=== PATIENT | male | born 1975 | race American Indian/Alaskan Native ===

== ENCOUNTER 2017-06-16 01:51 | Emergency (ER) | payer MEDICAID, OTHER ==
[2017-06-16 02:01] VITALS: BP 100/59; PULSE 67; RESP 17; TEMP 98.2; O2SAT 97
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
== END 2017-06-16 04:55 ==
LOC: H.ER 01:51
DX: S09.90XA Unspecified injury of head, initial encounter (principal); M54.2 Cervicalgia; S29.9XXA Unspecified injury of thorax, initial encounter; Y04.0XXA Assault by unarmed brawl or fight, initial encounter; Y92.89 Other specified places as the place of occurrence of the external cause; J45.909 Unspecified asthma, uncomplicated

== ENCOUNTER 2017-10-18 12:41 | Observation (INO) | payer MEDICAID, OTHER ==
--- NOTE | 2017-10-18 13:08 | ED PDOC ---
Syncope/Near Syncope/Dizziness Time Seen by Provider: 10/18/17 12:58 Chief Complaint (Nursing): Dizziness/Lightheaded Chief Complaint (Provider): Dizziness History Per: Patient History/Exam Limitations: no limitations Onset/Duration Of Symptoms: Hrs (prior to arrival) Current Symptoms Are (Timing): Still Present Additional Complaint(s): Igor Alvarado is a 42 year old male with a past medical history of diabetes brought to the ED by [place] police for medical and psychiatric clearance prior to incarceration. The patient admits to using methamphetamine and benzodiazepine , with last use occurring yesterday. The patient reports feeling dizzy. PMD: None Provided Past Medical History Reviewed: Historical Data, Nursing Documentation, Vital Signs Vital Signs: Last Vital Signs Temp 97 F L 10/18/17 12:49 Pulse 52 L 10/18/17 12:49 Resp 16 10/18/17 12:49 BP 132/87 10/18/17 12:49 Pulse Ox 100 10/18/17 12:49 - Medical History PMH: Asthma, Diabetes Denies: Hepatitis, HIV, HTN, Seizures, Sexually Transmitted Disease - Surgical History Surgical History: Hernia Repair - Family History Family History: States: No Known Family Hx - Social History Drugs: Methamphetamine, Other (benzodiazepine) - Immunization History Hx Tetanus Toxoid Vaccination: Yes Hx Influenza Vaccination: No Hx Pneumococcal Vaccination: Yes - Home Medications Home Medications: Ambulatory Orders Medication Instructions Recorded Unobtainable 10/18/17 - Allergies Allergies/Adverse Reactions: Allergies Allergy/AdvReac Type Severity Reaction Status Date / Time acetaminophen Allergy Mild RASH Verified 10/18/17 12:48 ibuprofen [From Motrin] Allergy Mild RASH Verified 10/18/17 12:48 Review of Systems ROS Statement: Except As Marked, All Systems Reviewed And Found Negative Neurological: Positive for: Dizziness Physical Exam - Reviewed Nursing Documentation Reviewed: Yes Vital Signs Reviewed: Yes - Physical Exam Appears: Positive for: Non-toxic, No Acute Distress Head Exam: Positive for: ATRAUMATIC, NORMOCEPHALIC Skin: Positive for: Normal Color, Warm, Dry Eye Exam: Positive for: Normal appearance, EOMI ENT: Positive for: Normal ENT Inspection Neck: Positive for: Normal, Painless ROM Cardiovascular/Chest: Positive for: Regular Rate, Rhythm, Chest Non Tender Respiratory: Positive for: Normal Breath Sounds. Negative for: Respiratory Distress Gastrointestinal/Abdominal: Positive for: Normal Exam, Soft. Negative for: Tenderness Back: Positive for: Normal Inspection Extremity: Positive for: Normal ROM (full ROM). Negative for: Deformity Neurologic/Psych: Positive for: Alert, Oriented (x3). Negative for: Motor/ Sensory Deficits (or focal deficits) - Laboratory Results Result Diagrams: 10/18/17 14:04 10/18/17 14:04 - ECG O2 Sat by Pulse Oximetry: 100 (RA) Pulse Ox Interpretation: Normal Medical Decision Making Medical Decision Making: Time: 12:58 Impression: Medical and Psychiatric clearance prior to incarceration Plan: Will evaluate for medical and psychiatric clearance. Scribe Attestation: Documented by Dali Sharp, acting as a scribe for Eugenio Rinaldi MD. Provider Scribe Attestation: All medical record entries made by the Scribe were at my direction and personally dictated by me. I have reviewed the chart and agree that the record accurately reflects my personal performance of the history, physical exam, medical decision making, and the department course for this patient. I have also personally directed, reviewed, and agree with the discharge instructions and disposition. Disposition - Clinical Impression Clinical Impression: Chest pain - Patient ED Disposition Is Patient to be Admitted: Yes - Disposition Disposition Time: 13:30 Condition: FAIR - Pt Status Changed To: Hospital Disposition Of: Observation - POA Present On Arrival: None
--- NOTE | 2017-10-18 13:53 | RAD ---
HISTORY: cough COMPARISON: Comparison made with prior chest as part of a chest and rib series dated 06/16/2017. FINDINGS: LUNGS: Slightly coarsened increased interstitial markings with a few scattered peribronchial cuffing changes. Rule out sequela of reactive/inflammatory airway disease or viral illness. Probable mild right basilar atelectasis. PLEURA: No significant pleural effusion identified, no pneumothorax apparent. CARDIOVASCULAR: Normal. OSSEOUS STRUCTURES: No significant abnormalities. VISUALIZED UPPER ABDOMEN: Normal. OTHER FINDINGS: None. IMPRESSION: Slightly coarsened increased interstitial markings with a few scattered peribronchial cuffing changes. Rule out sequela of reactive/inflammatory airway disease or viral illness. Probable mild right basilar atelectasis.
[2017-10-18 14:11] LABS: BASO # 0.1 K/uL (0.0-0.2); BASO % 0.8 % (0.0-2.0); EOS # 0.1 K/uL (0.0-0.7); EOS % 0.7 % (0.0-4.0); HEMATOCRIT 40.8 % (35.0-51.0); LYMPH # 1.9 K/uL (1.0-4.3); LYMPH % 24.9 % (20.0-40.0); MEAN CELL VOLUME 85.2 fl (80.0-94.0); MEAN CORPUSCULAR HEMOGLOBIN 27.8 pg (27.0-31.0); MEAN CORPUSCULAR HGB CONC 32.6 g/dL (33.0-37.0); MEAN PLATELET VOLUME 7.1 fl (7.2-11.7); MONO # 0.6 K/uL (0.0-0.8); MONO % 7.3 % (0.0-10.0); NEUT # 5.1 K/uL (1.8-7.0); NEUT % 66.3 % (50.0-75.0); NRBC % 0.1 % (0.0-0.0); RED CELL DISTRIBUTION WIDTH 13.9 % (11.5-14.5); WHITE BLOOD COUNT 7.7 K/uL (4.8-10.8)
[2017-10-18 14:25] LABS: ALB/GLOB RATIO 1.1 (1.0-2.1); ALCOHOL SERUM < 10 mg/dl (0-10); ALKALINE PHOSPHATASE 96 U/L (38-126); ALT/SGPT 118 U/L (21-72); AST/SGOT 76 U/L (17-59); BLOOD UREA NITROGEN 10 mg/dl (9-20); CALCIUM 9.7 mg/dL (8.4-10.2); CARBON DIOXIDE 30 mmol/L (22-30); CHLORIDE 103 mmol/L (98-107); GFR AFRICAN-AMERICAN > 60; GLUCOSE,RANDOM 103 mg/dL (75-110); POTASSIUM 4.4 MMOL/L (3.6-5.0); SODIUM 142 mmol/l (132-148); TOTAL PROTEIN 8.1 G/DL (6.3-8.2)
[2017-10-18] MEDS ORDERED: DiphenhydrAMINE 50 mg/ml Inj IVP ONE (21:00)
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
--- NOTE | 2017-10-19 09:02 | CP.PCM.CON ---
History of Present Illness - History of Present Illness History of Present Illness: This 42-year-old man was brought to the emergency room by the police after he was arrested and he complained of chest discomfort. The patient has a history of drug abuse including opiates and methamphetamines. He is a smoker smokes a pack of cigarettes daily. Denies history of prior myocardial infarction. The patient also gives history of being a diabetic though he has not been taking any antibiotic diabetic medications. Denies any history of hypertension. At this point is complaining of nausea and has been retching repeatedly. Physical examination shows an -[place] male awake and conscious, able to answer simple questions readily. He seems unaware of his surroundings. He was afebrile with a pulse rate of 74 bpm and regular and a blood pressure of 124 /74 mmHg. His jugular venous pressure was not elevated and there was no edema over his lower extremities. His pedal pulses were well felt. There were no carotid bruits. There is tenderness in the left pectoral region which duplicated his symptom of chest pain. The extremities were warm and his nailbeds were pink. There was no central or peripheral cyanosis. There was no clubbing. There was no lymphadenopathy. The apex was not palpable. The first and second heart sounds were normal. There was no murmur or gallop. There were no rales. His abdomen was soft liver and spleen are not palpable. His electrocardiogram at admission showed sinus rhythm with what appeared to be baseline artifacts only 5 of these occurred at approximately 140 bpm without interfering with the basic sinus rhythm. These were seen on the admission electrocardiogram recorded at 1:07 p.m. His subsequent electrocardiogram recorded at 3:00 did not show these artifacts. Subsequently the patient has been monitored on a telemetry unit and the patient does not show atrial or ventricular arrhythmias. No ST-T abnormalities suggestive of myocardial ischemia are pathological Q waves were detected on the electrocardiogram. His lab tests were noted. There was a mild abnormality of AST and a ALT. His troponins were negative for any evidence of myocyte injury. His urine analysis was positive for opiates. Impression: Chest wall pain. No evidence of acute coronary syndrome. Chronic drug use. History of diabetes mellitus and chronic cigarette use. The patient is stable from cardiovascular point of view to be discharged and managed as an outpatient. Past Patient History - Past Medical History & Family History Past Medical History?: Yes - Past Social History Smoking Status: Smoker Currrent Status Unknown Chewing Tobacco Use: No Cigar Use: No Drugs: Cocaine, Methamphetamine - CARDIAC Hx Cardiac Disorders: Yes Hx Hypertension: Yes - PULMONARY Hx Asthma: Yes Hx Tuberculosis: No - NEUROLOGICAL HX Cerebrovascular Accident: No Hx Seizures: No - HEENT Hx Cataracts: No - ENDOCRINE/METABOLIC Hx Diabetes Mellitus Type 2: Yes - HEMATOLOGICAL/ONCOLOGICAL Hx Blood Disorders: No Hx Cancer: No Hx Human Immunodeficiency Virus (HIV): No - INTEGUMENTARY Hx Dermatological Problems: No - MUSCULOSKELETAL/RHEUMATOLOGICAL Hx Musculoskeletal Disorders: No Hx Falls: No - GASTROINTESTINAL Hx Gastrointestinal Disorders: Yes Other/Comment: Hernia repair - GENITOURINARY/GYNECOLOGICAL Hx Sexually Transmitted Disorders: No - PSYCHIATRIC Hx Depression: Yes Hx Substance Use: Yes - SURGICAL HISTORY Hx Surgeries: Yes Hx Herniorrhaphy: Yes Other/Comment: Left inguinal hernia repair surgery - ANESTHESIA Hx Anesthesia: Yes Hx Anesthesia Reactions: No Hx Malignant Hyperthermia: No Meds Allergies/Adverse Reactions: Allergies Allergy/AdvReac Type Severity Reaction Status Date / Time acetaminophen Allergy Mild RASH Verified 10/18/17 12:48 ibuprofen [From Motrin] Allergy Mild RASH Verified 10/18/17 12:48 - Medications Medications: Current Medications Acetaminophen (Tylenol 325mg Tab) 650 mg PO Q6 PRN PRN Reason: Pain, moderate (4-7) Ondansetron HCl (Zofran Inj) 4 mg IVP Q6 PRN PRN Reason: Nausea/Vomiting Last Admin: 10/19/17 05:12 Dose: 4 mg Tramadol HCl (Ultram) 50 mg PO Q6 PRN PRN Reason: Pain, severe (8-10) Last Admin: 10/18/17 19:56 Dose: 50 mg Results - Vital Signs Recent Vital Signs: Last Vital Signs Temp 98.7 F 10/19/17 08:11 Pulse 59 L 10/19/17 08:11 Resp 20 10/19/17 08:11 BP 124/81 10/19/17 08:11 Pulse Ox 100 10/19/17 08:11 - Labs Result Diagrams: 10/18/17 14:04 10/18/17 14:04 Labs: Laboratory Results - last 24 hr 10/18/17 10/18/17 10/18/17 13:01 14:04 14:04 WBC 7.7 RBC 4.79 Hgb 13.3 Hct 40.8 MCV 85.2 MCH 27.8 MCHC 32.6 L RDW 13.9 Plt Count 226 MPV 7.1 L Neut % (Auto) 66.3 Lymph % (Auto) 24.9 [place] % (Auto) 7.3 Eos % (Auto) 0.7 Baso % (Auto) 0.8 Neut # 5.1 Lymph # 1.9 [place] # 0.6 Eos # 0.1 Baso # 0.1 Sodium 142 Potassium 4.4 Chloride 103 Carbon Dioxide 30 Anion Gap 13 BUN 10 Creatinine 0.8 Est GFR ( Amer) > 60 Est GFR (Non-Af Amer) > 60 POC Glucose (mg/dL) 96 Random Glucose 103 Calcium 9.7 Total Bilirubin 1.0 AST 76 H ALT 118 H Alkaline Phosphatase 96 Troponin I < 0.0120 Total Protein 8.1 Albumin 4.3 Globulin 3.8 Albumin/Globulin Ratio 1.1 Urine Opiates Screen Urine Methadone Screen Ur Barbiturates Screen Ur Phencyclidine Scrn Ur Amphetamines Screen U Benzodiazepines Scrn U Oth Cocaine Metabols U Cannabinoids Screen Alcohol, Quantitative < 10 10/18/17 10/18/17 17:46 20:54 WBC RBC Hgb Hct MCV MCH MCHC RDW Plt Count MPV Neut % (Auto) Lymph % (Auto) [place] % (Auto) Eos % (Auto) Baso % (Auto) Neut # Lymph # [place] # Eos # Baso # Sodium Potassium Chloride Carbon Dioxide Anion Gap BUN Creatinine Est GFR ( Amer) Est GFR (Non-Af Amer) POC Glucose (mg/dL) Random Glucose Calcium Total Bilirubin AST ALT Alkaline Phosphatase Troponin I < 0.0120 Total Protein Albumin Globulin Albumin/Globulin Ratio Urine Opiates Screen Positive H Urine Methadone Screen Negative Ur Barbiturates Screen Negative Ur Phencyclidine Scrn Negative Ur Amphetamines Screen Negative U Benzodiazepines Scrn Positive U Oth Cocaine Metabols Negative U Cannabinoids Screen Negative Alcohol, Quantitative
--- NOTE | 2017-10-19 11:24 | CP.PCM.CON ---
History of Present Illness - History of Present Illness History of Present Illness: Psychiatry consult called for depression and psychiatric clearance for intoxication Chief complaint: Lightheadedness and Chest Pain HPI: This is a 42 years old male with hx of DM, Asthma and some unknown heart condition who was brought to the ED by the Police for clearance prior incarceration. Patient seems to give conflicting information to different providers. He told the keno writer/runner that he takes Methadone 85 mg PO Daily from a clinic in [place], [place], last taken 2 days ago. He also reports using 20 bags of heroin IV per day in addition to the methadone. He also states that he uses 6 (2 mg) sticks of Xanax per day, when he is able to get it. As per chart her told other providers that he uses cocaine and methamphetamine but denies this to keno writer/runner. Patient reports his mood as "fucked up" and expressed vague ideation to harm himself, but did not have any active ideation/plan/intent and was stating it to tell the keno writer/runner that he can not be discharged from the hospital. He denied psychiatric treatment or medications. Denies AH/VH/ paranoia/delusions. Patient seems to be exaggerating symptoms, including pretending that his leg was spontaneously shaking. The leg would stop shaking when he could tell the keno writer/runner was not looking at his leg. PMH: Asthma, Diabetes PSH: Hernia Repair SH: +20 bags of heroin a day IV + Methadone (as per patient), +Benzodiazepine abuse. As per record patient also reported cocaine and methamphetamine abuse. Light smoker; and Drinks Alcohol socially FH: States: No Known Family Hx Allergies: Acetaminophen, Ibuprofen MSE: A + O x 3, calm, cooperative, no acute distress, thought process- linear/ coherent, thought content- no delusions, mood "fucked up", affect- neutral, NO AH/VH/paranoia, poor I/J re: substance abuse although patient has enough insight to likely feign symptoms Impression: 42 yo male w/ polysubstance dependence, patient is likely untruthful on interview as he gives conflicting information and seems to be exaggerating symptoms to prolong his hospitalization. At this time patient does not need acute inpatient psychiatric admission. It is unclear if patient is being truthful about how much and which substances he abuses. -For opiod w/drawal can given Clonidine 0.1 mg PO Q8hr, PRN Zofran, Imodium, Flexeril if not medically contraindicated -Unclear how much benzodiazepines the patient uses, can give Ativan or Librium as per [facility] protocol if signs/symptoms of withdrawal are present -No acute inpatient psychiatric admission indicated Past Patient History - Past Medical History & Family History Past Medical History?: Yes - Past Social History Smoking Status: Smoker Currrent Status Unknown Chewing Tobacco Use: No Cigar Use: No Drugs: Cocaine, Methamphetamine - CARDIAC Hx Cardiac Disorders: Yes Hx Hypertension: Yes - PULMONARY Hx Asthma: Yes Hx Tuberculosis: No - NEUROLOGICAL HX Cerebrovascular Accident: No Hx Seizures: No - HEENT Hx Cataracts: No - ENDOCRINE/METABOLIC Hx Diabetes Mellitus Type 2: Yes - HEMATOLOGICAL/ONCOLOGICAL Hx Blood Disorders: No Hx Cancer: No Hx Human Immunodeficiency Virus (HIV): No - INTEGUMENTARY Hx Dermatological Problems: No - MUSCULOSKELETAL/RHEUMATOLOGICAL Hx Musculoskeletal Disorders: No Hx Falls: No - GASTROINTESTINAL Hx Gastrointestinal Disorders: Yes Other/Comment: Hernia repair - GENITOURINARY/GYNECOLOGICAL Hx Sexually Transmitted Disorders: No - PSYCHIATRIC Hx Depression: Yes Hx Substance Use: Yes - SURGICAL HISTORY Hx Surgeries: Yes Hx Herniorrhaphy: Yes Other/Comment: Left inguinal hernia repair surgery - ANESTHESIA Hx Anesthesia: Yes Hx Anesthesia Reactions: No Hx Malignant Hyperthermia: No Meds Allergies/Adverse Reactions: Allergies Allergy/AdvReac Type Severity Reaction Status Date / Time acetaminophen Allergy Mild RASH Verified 10/18/17 12:48 ibuprofen [From Motrin] Allergy Mild RASH Verified 10/18/17 12:48 - Medications Medications: Current Medications Ondansetron HCl (Zofran Inj) 4 mg IVP Q6 PRN PRN Reason: Nausea/Vomiting Last Admin: 10/19/17 05:12 Dose: 4 mg Tramadol HCl (Ultram) 50 mg PO Q6 PRN PRN Reason: Pain, severe (8-10) Last Admin: 10/18/17 19:56 Dose: 50 mg Results - Vital Signs Recent Vital Signs: Last Vital Signs Temp 98.7 F 10/19/17 08:11 Pulse 59 L 10/19/17 08:11 Resp 20 10/19/17 08:11 BP 124/81 10/19/17 08:11 Pulse Ox 100 10/19/17 08:11 - Labs Result Diagrams: 10/18/17 14:04 10/18/17 14:04 Labs: Laboratory Results - last 24 hr 10/18/17 10/18/17 10/18/17 13:01 14:04 14:04 WBC 7.7 RBC 4.79 Hgb 13.3 Hct 40.8 MCV 85.2 MCH 27.8 MCHC 32.6 L RDW 13.9 Plt Count 226 MPV 7.1 L Neut % (Auto) 66.3 Lymph % (Auto) 24.9 [place] % (Auto) 7.3 Eos % (Auto) 0.7 Baso % (Auto) 0.8 Neut # 5.1 Lymph # 1.9 [place] # 0.6 Eos # 0.1 Baso # 0.1 Sodium 142 Potassium 4.4 Chloride 103 Carbon Dioxide 30 Anion Gap 13 BUN 10 Creatinine 0.8 Est GFR ( Amer) > 60 Est GFR (Non-Af Amer) > 60 POC Glucose (mg/dL) 96 Random Glucose 103 Calcium 9.7 Total Bilirubin 1.0 AST 76 H ALT 118 H Alkaline Phosphatase 96 Troponin I < 0.0120 Total Protein 8.1 Albumin 4.3 Globulin 3.8 Albumin/Globulin Ratio 1.1 Urine Opiates Screen Urine Methadone Screen Ur Barbiturates Screen Ur Phencyclidine Scrn Ur Amphetamines Screen U Benzodiazepines Scrn U Oth Cocaine Metabols U Cannabinoids Screen Alcohol, Quantitative < 10 10/18/17 10/18/17 17:46 20:54 WBC RBC Hgb Hct MCV MCH MCHC RDW Plt Count MPV Neut % (Auto) Lymph % (Auto) [place] % (Auto) Eos % (Auto) Baso % (Auto) Neut # Lymph # [place] # Eos # Baso # Sodium Potassium Chloride Carbon Dioxide Anion Gap BUN Creatinine Est GFR ( Amer) Est GFR (Non-Af Amer) POC Glucose (mg/dL) Random Glucose Calcium Total Bilirubin AST ALT Alkaline Phosphatase Troponin I < 0.0120 Total Protein Albumin Globulin Albumin/Globulin Ratio Urine Opiates Screen Positive H Urine Methadone Screen Negative Ur Barbiturates Screen Negative Ur Phencyclidine Scrn Negative Ur Amphetamines Screen Negative U Benzodiazepines Scrn Positive U Oth Cocaine Metabols Negative U Cannabinoids Screen Negative Alcohol, Quantitative
[2017-10-19 15:51] VITALS: RESP 14; O2SAT 98
[2017-10-19] MEDS ORDERED: Sucralfate 1 gm/10 ml Oral Susp UD PO SCH (17:00)
--- NOTE | 2017-10-19 18:01 | CP.PCM.DIS ---
Provider - Provider Date of Admission: 10/18/17 14:34 Attending physician: Bandar Rob Consults: Psych: DR Borges Cardio : Dr Andres Vila Time Spent in preparation of Discharge (in minutes): 45 Diagnosis - Discharge Diagnosis (1) Chest pain Status: Acute (2) Polysubstance abuse Status: Acute (3) Verbalizes suicidal thoughts Status: Acute Hospital Course - Lab Results Lab Results: Most Recent Lab Values WBC 7.7 K/uL (4.8-10.8) 10/18/17 14:04 RBC 4.79 Mil/uL (4.40-5.90) 10/18/17 14:04 Hgb 13.3 g/dL (12.0-18.0) 10/18/17 14:04 Hct 40.8 % (35.0-51.0) 10/18/17 14:04 MCV 85.2 fl (80.0-94.0) 10/18/17 14:04 MCH 27.8 pg (27.0-31.0) 10/18/17 14:04 MCHC 32.6 g/dL (33.0-37.0) L 10/18/17 14:04 RDW 13.9 % (11.5-14.5) 10/18/17 14:04 Plt Count 226 K/uL (130-400) 10/18/17 14:04 MPV 7.1 fl (7.2-11.7) L 10/18/17 14:04 Neut % (Auto) 66.3 % (50.0-75.0) 10/18/17 14:04 Lymph % (Auto) 24.9 % (20.0-40.0) 10/18/17 14:04 [place] % (Auto) 7.3 % (0.0-10.0) 10/18/17 14:04 Eos % (Auto) 0.7 % (0.0-4.0) 10/18/17 14:04 Baso % (Auto) 0.8 % (0.0-2.0) 10/18/17 14:04 Neut # 5.1 K/uL (1.8-7.0) 10/18/17 14:04 Lymph # 1.9 K/uL (1.0-4.3) 10/18/17 14:04 [place] # 0.6 K/uL (0.0-0.8) 10/18/17 14:04 Eos # 0.1 K/uL (0.0-0.7) 10/18/17 14:04 Baso # 0.1 K/uL (0.0-0.2) 10/18/17 14:04 Sodium 142 mmol/l (132-148) 10/18/17 14:04 Potassium 4.4 MMOL/L (3.6-5.0) 10/18/17 14:04 Chloride 103 mmol/L (98-107) 10/18/17 14:04 Carbon Dioxide 30 mmol/L (22-30) 10/18/17 14:04 Anion Gap 13 (10-20) 10/18/17 14:04 BUN 10 mg/dl (9-20) 10/18/17 14:04 Creatinine 0.8 mg/dl (0.8-1.5) 10/18/17 14:04 Est GFR ( Amer) > 60 10/18/17 14:04 Est GFR (Non-Af Amer) > 60 10/18/17 14:04 POC Glucose (mg/dL) 96 mg/dL (65-110) 10/18/17 13:01 Random Glucose 103 mg/dL (75-110) 10/18/17 14:04 Calcium 9.7 mg/dL (8.4-10.2) 10/18/17 14:04 Total Bilirubin 1.0 mg/dl (0.2-1.3) 10/18/17 14:04 AST 76 U/L (17-59) H 10/18/17 14:04 ALT 118 U/L (21-72) H 10/18/17 14:04 Alkaline Phosphatase 96 U/L (38-126) 10/18/17 14:04 Troponin I < 0.0120 ng/mL (0.00-0.120) 10/19/17 16:00 Total Protein 8.1 G/DL (6.3-8.2) 10/18/17 14:04 Albumin 4.3 g/dL (3.5-5.0) 10/18/17 14:04 Globulin 3.8 gm/dL (2.2-3.9) 12/18/17 14:04 Albumin/Globulin Ratio 1.1 (1.0-2.1) 10/18/17 14:04 Urine Opiates Screen Positive (NEGATIVE) H 10/18/17 17:46 Urine Methadone Screen Negative (NEGATIVE) 10/18/17 17:46 Ur Barbiturates Screen Negative (NEGATIVE) 10/18/17 17:46 Ur Phencyclidine Scrn Negative (NEGATIVE) 10/18/17 17:46 Ur Amphetamines Screen Negative (NEGATIVE) 10/18/17 17:46 U Benzodiazepines Scrn Positive (NEGATIVE) 10/18/17 17:46 U Oth Cocaine Metabols Negative (NEGATIVE) 10/18/17 17:46 U Cannabinoids Screen Negative (NEGATIVE) 10/18/17 17:46 Alcohol, Quantitative < 10 mg/dl (0-10) 10/18/17 14:04 - Hospital Course Hospital Course: 42 y/o gent with unclear PMH- he gives very conflicting history - hx of DM however all previous Glucose readings in the hospital were normal. Also gives hx of being in a Methadone program for years but unable to recal where so we could verify his dose and give it to him. He states that he took cocaine and Methamphetamine . He was brought in by Police while in custody because he complained of chest pain. EKG showed some nonspecific changes. Troponin x 4 were negative. Cardiology : DR Andres Vila was consulted and evaluated pt - he reviewed EKGs , Tele monitoring and ECHO and felt that CP is sec to Chest Wall pain and not ACS and cleared pt from cardiac standpoint. Patient verbalized suicidal thoughts. Psych was consulted - Dr Borges rec Clonidine prn for withdrawal sxs. and she did not feel that pt had any intent to hurt himself but was being manipulattive to avoid going to [facility]. (1) Chest pain, likely chest wall pain , ACS ruled out Status: Acute Tropx 4 negative Cardio consulted- , not ACS, no cardiac pathology , cleared pt for discharge Pt refused Ultram and wants IV pain med - states that he is allergic to Tylenol and Ibuprofen IV Toradol ordered for pain mgt (2) Polysubstance abuse Status: Acute no signs of withdrawal pt states tht he is vomiting however no vomitus noted ( only saliva in the basin ) not BP elevation, no tacycccardia, no piloerection, pupils normal ERTL Clonidine prn for withdrawal sxs Ativan prn Pt states he is in a Methadone program for may years however does not remember where when asked so we could verify this (3) Verbalizes suicidal thoughts Status: Acute verbalized suicidal and homicidal thoughts to RN- states he plans to hang himself Psych consulted- Dr Borges evaluated pt and does not think pt has any intent - no need for Inpatient Psych admission pt admitted then admitted that he is trying to avoid going to [facility] Discharge Exam - Head Exam Head Exam: ATRAUMATIC, NORMAL INSPECTION, NORMOCEPHALIC - Eye Exam Eye Exam: EOMI, Normal appearance, PERRL Pupil Exam: NORMAL ACCOMODATION - ENT Exam ENT Exam: Mucous Membranes Moist, Normal External Ear Exam - Neck Exam Neck exam: Full Rom - Respiratory Exam Respiratory Exam: NORMAL BREATHING PATTERN. absent: Rales, Wheezes, Respiratory Distress - Cardiovascular Exam Cardiovascular Exam: Bradycardia, REGULAR RHYTHM, +S1, +S2 - GI/Abdominal Exam GI & Abdominal Exam: Normal Bowel Sounds, Soft. absent: Tenderness - Extremities Exam Extremities exam: full ROM, normal capillary refill, pedal pulses present - Back Exam Back exam: FULL ROM. absent: CVA tenderness (L), CVA tenderness (R) - Neurological Exam Neurological exam: Alert, CN II-XII Intact, Oriented x3, Reflexes Normal - Psychiatric Exam Psychiatric exam: Normal Affect, Normal Mood - Skin Skin Exam: Dry, Normal Color, Warm Discharge Plan - Discharge Medications Prescriptions: cloNIDine [Catapres] 0.1 mg PO Q12 PRN #30 tab PRN Reason: Other Pantoprazole [Protonix] 40 mg PO DAILY #30 ect traMADol [Ultram] 50 mg PO Q6 PRN #20 tab PRN Reason: Pain, Severe (8-10) - Follow Up Plan Condition: GOOD Disposition: RELEASED IN POLICE CUSTODY Instructions: Chest Pain (DC) Additional Instructions: ff up with PMD aliya
[2017-10-19 20:04] VITALS: BP 130/76; PULSE 46; TEMP 99
--- NOTE | 2017-10-20 10:00 | CARD ---
APPROVED REPORT EXAM: Two-dimensional and M-mode echocardiogram with Doppler and color Doppler. Other Information Quality : ExcellentRhythm : NSR INDICATION Chest Pain 2D DIMENSIONS IVSd1.16 (0.7-1.1cm)LVDd4.63 (3.9-5.9cm) LVOT Diameter2.04 (1.8-2.4cm)PWd0.66 (0.7-1.1cm) IVSs1.42 (0.8-1.2cm)LVDs2.84 (2.5-4.0cm) FS (%) 38.7 %PWs1.27 (0.8-1.2cm) M-Mode DIMENSIONS Left Atrium (MM)3.35 (2.5-4.0cm)IVSd0.94 (0.7-1.1cm) Aortic Root3.65 (2.2-3.7cm)LVDd5.38 (4.0-5.6cm) Aortic Cusp Exc.2.56 (1.5-2.0cm)PWd0.97 (0.7-1.1cm) IVSs1.56 cmFS (%) 33 % LVDs3.59 (2.0-3.8cm)PWs1.44 cm Mitral Valve MV E Fyluwxai63.4cm/sMV DECEL PORL744emFL A Rbxastza90.2cm/s MV [id number]/A ratio2.8MVA (PHT)3.59cm2 TDI Lateral E' Peak V17.76cm/sMedial E' Peak V13.28cm/sE/Lateral E'5.1 E/Medial E'6.9 LEFT VENTRICLE The left ventricle is normal size. There is normal left ventricular wall thickness. The left ventricular function is normal. The left ventricular ejection fraction is 60% There is normal LV segmental wall motion. The left ventricular diastolic function is normal. No left ventricle thrombus noted on this study. There is no ventricular septal defect visualized. There is no left ventricular aneurysm. There is no mass noted in the left ventricle. RIGHT VENTRICLE The right ventricle is normal size. There is normal right ventricular wall thickness. The right ventricular systolic function is normal. ATRIA The left atrium size is normal. The right atrium size is normal. The interatrial septum is intact with no evidence for an atrial septal defect. AORTIC VALVE The aortic valve is normal in structure. No aortic regurgitation is present. There is no aortic valvular stenosis. There is no aortic valvular vegetation. MITRAL VALVE The mitral valve is normal in structure. There is no evidence of mitral valve prolapse. There is no mitral valve stenosis. There is no mitral valve regurgitation noted. TRICUSPID VALVE The tricuspid valve is normal in structure. There is no tricuspid valve regurgitation noted. There is no tricuspid valve prolapse or vegetation. There is no tricuspid valve stenosis. PULMONIC VALVE The pulmonary valve is normal in structure. There is no pulmonic valvular regurgitation. There is no pulmonic valvular stenosis. GREAT VESSELS The aortic root is normal in size. The ascending aorta is normal in size. The IVC is normal in size and collapses >50% with inspiration. PERICARDIAL EFFUSION The pericardium appears normal. There is no pleural effusion. <Conclusion> Normal Echocardiogram
--- NOTE | 2017-10-20 11:52 | CARD ---
APPROVED REPORT EKG Measurement Heart [id number] <Conclusion> Sinus bradycardia Minimal voltage criteria for LVH, may be normal variant Borderline ECG
--- NOTE | 2017-10-20 11:54 | CARD ---
APPROVED REPORT EKG Measurement Heart [id number] <Conclusion> Sinus bradycardia with premature atrial complexes with aberrant conduction Minimal voltage criteria for LVH, may be normal variant Borderline ECG
== END 2017-10-19 21:08 ==
LOC: H.ER 12:41 → H.ERHOLD 14:34 → H.TEL 16:49
PROVIDERS: ADMIT Internal Medicine; ATTEND Internal Medicine
DX: R07.9 Chest pain, unspecified (principal); F14.10 Cocaine abuse, uncomplicated; F15.10 Other stimulant abuse, uncomplicated; R45.850 Homicidal ideations; R45.851 Suicidal ideations; J45.909 Unspecified asthma, uncomplicated; Z88.6 Allergy status to analgesic agent; F17.210 Nicotine dependence, cigarettes, uncomplicated; F32.9 Major depressive disorder, single episode, unspecified
CPT/HCPCS: 36415; 71010; 80053; 82948; 84484; 85025; 93306; 99283; C9113; G0378; G0480; J1200; J2060; J2405

== ENCOUNTER 2018-02-20 14:42 | Emergency (ER) | payer MEDICAID ==
[2018-02-20 14:48] VITALS: BP 156/101; PULSE 89; RESP 18; TEMP 97; O2SAT 100
--- NOTE | 2018-02-20 15:59 | ED PDOC ---
HPI: Psych/Substance Abuse Time Seen by Provider: 02/20/18 15:01 Chief Complaint (Nursing): Medical Clearance Chief Complaint (Provider): opiate overdose ED Caveat: Uncooperative History Per: Other (nursing notes and patient) Additional Complaint(s): Pt reports he is fine and does not want to be evaluated. According to nursing report, pt was found unresponsive by EMS and given narcan intranasally and woke up. Pt reports that he was in the bathroom at his parents' home and was woken up by the emergency workers and then told him he had to go to the ER. He adamantly denies any opiate use. He reports he was at the gym and was very tired and that was why he was unresponsive. Reports he knows what narcan is and does not know why it would wake him up but he did not use drugs. PMD None Pt requesting to be discharged on arrival to ER. Refuses to have any workup performed. Past Medical History Reviewed: Historical Data, Nursing Documentation, Vital Signs Vital Signs: Last Vital Signs Temp 97.0 F L 02/20/18 14:46 Pulse 89 02/20/18 14:46 Resp 18 02/20/18 14:46 BP 156/101 H 02/20/18 14:46 Pulse Ox 100 02/20/18 14:46 - Medical History PMH: Asthma, Depression, Diabetes, HTN Denies: Hepatitis, HIV, Seizures, Sexually Transmitted Disease - Surgical History Surgical History: Hernia Repair - Family History Family History: States: No Known Family Hx - Social History Drugs: Denies, Other (Previous chart demonstrates polysubstance abuse including benzos, opiates and methamphetamines.) - Immunization History Hx Tetanus Toxoid Vaccination: Yes Hx Influenza Vaccination: No Hx Pneumococcal Vaccination: Yes - Home Medications Home Medications: Ambulatory Orders Medication Instructions Recorded Pantoprazole [Protonix] 40 mg PO DAILY #30 ect 10/19/17 cloNIDine [Catapres] 0.1 mg PO Q12 PRN #30 tab 10/19/17 traMADol [Ultram] 50 mg PO Q6 PRN #20 tab 10/19/17 - Allergies Allergies/Adverse Reactions: Allergies Allergy/AdvReac Type Severity Reaction Status Date / Time acetaminophen Allergy Mild RASH Verified 10/18/17 12:48 ibuprofen [From Motrin] Allergy Mild RASH Verified 10/18/17 12:48 Review of Systems ROS Statement: Except As Marked, All Systems Reviewed And Found Negative Physical Exam - Reviewed Nursing Documentation Reviewed: Yes Vital Signs Reviewed: Yes - Physical Exam Appears: Positive for: No Acute Distress Head Exam: Positive for: ATRAUMATIC, NORMOCEPHALIC Skin: Positive for: Warm, Dry Eye Exam: Positive for: EOMI, PERRL Neck: Positive for: Painless ROM, Trachea Midline Cardiovascular/Chest: Positive for: Regular Rate, Rhythm Respiratory: Negative for: Accessory Muscle Use, Respiratory Distress Back: Positive for: Normal Inspection. Negative for: Decreased ROM Extremity: Negative for: Normal ROM, Deformity Neurologic/Psych: Positive for: Alert, biomedical scientist II-XII (intact), Oriented (x3), Mood/ Affect (angry mood and affect), Gait (steady). Negative for: Motor/Sensory Deficits - ECG O2 Sat by Pulse Oximetry: 100 - Progress ED Course And Treament: 4p After observation period in ER, pt remained awake and continuing to report no symptoms. Pt has h/o polysubstance abuse in previous charts. Advised patient risks of addiction, overdose and and resources provided. Patient directed not to drive or care for children until reevaluated by PMD/clinic. Disposition - Clinical Impression Clinical Impression: Opiate abuse, episodic Counseled Patient/Family Regarding: Studies Performed, Diagnosis, Need For Followup - Disposition Referrals: [facility] [Outside] Disposition: Routine/Home Disposition Time: 16:10 Condition: IMPROVED Additional Instructions: UNDER NO CIRCUMSTANCES ARE YOU TO DRIVE, OPERATE ANY HEAVY MACHINERY OR CARE FOR ANY MINORS UNTIL REEVALUATED BY YOUR DOCTOR OR CLINIC. Instructions: Drug Abuse and Drug Addiction (DC)
== END 2018-02-20 16:07 | disposition home or self-care (01) ==
LOC: H.ER 14:42
DX: F11.10 Opioid abuse, uncomplicated (principal); E11.9 Type 2 diabetes mellitus without complications